=== PATIENT | male | born 1995 | race Caucasian/White ===

== ENCOUNTER 2017-11-23 00:01 | Emergency (ER) | payer OTHER ==
[~2017-11-23] VITALS: Ht 175.3 cm; Wt 80.7 kg
[2017-11-23 00:10] VITALS: TEMP 36.5; Ht 175.3 cm; Wt 80.7 kg
[2017-11-23] MEDS ORDERED: CYCLOBENZAPRINE HCL 5 MG TAB PO STA (01:26)
[2017-11-23] MEDS ORDERED: ACETAMINOPHEN 325 MG TAB PO STA (01:26)
[2017-11-23] MEDS ORDERED: LIDODERM (LIDOCAINE) PATCH 5% ONE (01:31)
--- NOTE | 2017-11-23 01:31 | EMERGENCY ROOM VISIT NOTE ---
History Report prepared by Chalo: David Hudson Under the Supervision of: Chepe DemarcoO. First contact with patient: 01:15 Chief Complaint: BACK PAIN Stated Complaint: LOWER BACK PAIN History of Present Illness The patient is a 22 year old male who presents to the Emergency Room with complaints of constant lower back pain beginning earlier today. The patient states that he was playing soccer today and was ran into by another player. He notes that he heard "two cracks" in his right lower back when the other player struck his back. He reports that he initially felt like his pain was muscular but was unsure because his pain worsened throughout the remainder of the soccer game. The patient states that he is currently experiencing a sharp pain that worsens whenever he moves. He notes that his pain also worsens and becomes tight when he takes a deep breath. He reports that his pain stays in his back and moves upward to his chest. He denies any abdominal pain, pelvic pain, and numbness. The patient states that he took an Aleve and used a cryogenic spray today with no relief of his pain. Source of History: patient Onset: today Position: back (lower) Quality: sharp, other (tight) Timing: constant Modifying Factors (Worsening): breathing, movement Associated Symptoms: + chest pain, No abdominal pain, No numbness Note: The patient denies any pelvic pain. Review of Systems See HPI for pertinent positives & negatives. A total of 6 systems reviewed and were otherwise negative. Past Medical & Surgical Medical Problems: (1) No chronic problems Family History No pertinent family history stated. Social History Smoking Status: Never Smoker Marital Status: single Housing Status: lives with roommate Occupation Status: student Current/Historical Medications Scheduled PRN Cyclobenzaprine Hcl (Flexeril), 10 MG PO TID PRN for Muscle Spasms Oxycodone Ir (Roxicodone Ir), 1 TAB PO Q6 PRN for Pain Allergies Coded Allergies: No Known Allergies (Unverified , 11/23/17) Physical Exam Vital Signs Date Time Temp Pulse Resp B/P (MAP) Pulse Ox O2 Delivery O2 Flow Rate FiO2 11/23/17 03:45 47 20 132/63 97 11/23/17 02:51 47 16 126/67 96 Room Air 11/23/17 00:10 36.5 49 18 143/75 98 Room Air Physical Exam GENERAL: alert, well appearing, well nourished, no distress, non-toxic LUNGS: Clear to auscultation. Normal chest wall mechanics HEART: no murmurs, S1 normal and S2 normal ABDOMEN: abdomen soft, non-tender, normo-active bowel sounds, no masses, no rebound or guarding. BACK: Back is symmetrical on inspection and there is no deformity, no midline tenderness or stepoff, no CVA tenderness. Tender at the junction of the T and L spine in the right perispinal region, no ecchymosis, no crepitus. SKIN: no rashes and no bruising UPPER EXTREMITIES: upper extremities are grossly normal. LOWER EXTREMITIES: No pitting edema. No bony tenderness to the pelvis and hips. NEURO EXAM: Normal sensorium, cranial nerves II-XII grossly intact, normal speech, no gross weakness of arms, no gross weakness of legs. Medical Decision & Procedures ER Provider Diagnostic Interpretation: Radiology results have been interpreted and reviewed by me. Lumbar Spine X-RAY: No subluxation. Questionable small anterior end plate fracture at t12. Medications Administered Medications (Trade) Dose Ordered Sig/Wyatt Route Start Time Stop Time Status Last Admin Dose Admin Cyclobenzaprine HCl (Flexeril Tab) 10 mg NOW STAT PO 11/23/17 01:26 11/23/17 01:28 DC 11/23/17 01:36 10 MG Acetaminophen (Tylenol Tab) 650 mg NOW STAT PO 11/23/17 01:26 11/23/17 01:28 DC 11/23/17 01:36 650 MG Lidocaine (Lidoderm Patch 5%) 1 patch STK-MED ONCE .ROUTE 11/23/17 01:31 11/23/17 01:32 DC 11/23/17 01:36 1 PATCH Tramadol HCl (Ultram Tab) 50 mg NOW STAT PO 11/23/17 03:08 11/23/17 03:09 DC 11/23/17 03:23 50 MG ED Course 0118: The patient was evaluated in room B9. A complete history and physical exam was performed. 0126: Acetaminophen 650mg PO, Cyclobenzaprine HCl 10mg PO 0243: Upon reevaluation, the patient is feeling better. I discussed the findings and the treatment plan with the patient. He verbalizes agreement and understanding. The patient was discharged home. 0308: Tramadol HCl 50mg PO Medical Decision Differential diagnosis: Etiologies such as musculoskeletal, disc herniation, fracture, aortic disease, metastatic disease, cord compression, discitis, infection, renal colic, gastrointestinal, acute exacerbation of chronic back pain, sciatica, cauda equina, as well as others were entertained. No hematuria noted on urine dip. Patient's pain mildly improved with medication. Patient with no prior history of back injury. I have a low suspicion for additional occult trauma including fracture or other spinal injury. Patient with no other paresthesias or other evidence of neurologic compromise. Patient able to ambulate here with a steady gait. Discussed with patient follow-up as a precaution, avoidance of strenuous activity including PT as he is in [facility], until his symptoms are improved and he is reevaluated by physician. Discussed use of his medications including a muscle relaxer and pain medication, avoidance of driving and alcohol use while taking these, discussed symptoms to watch and return for, he verbalized understanding was agreeable with plan. Medication Reconcilliation Current Medication List: was personally reviewed by me Blood Pressure Screening Patient's blood pressure: Normal blood pressure Blood pressure disposition: Did not require urgent referral Impression Primary Impression: Acute back pain Scribe Attestation The scribe's documentation has been prepared under my direction and personally reviewed by me in its entirety. I confirm that the note above accurately reflects all work, treatment, procedures, and medical decision making performed by me. Departure Information Dispostion Home / Self-Care Prescriptions Oxycodone Ir (Roxicodone Ir) 5 Mg Tab 1 TAB PO Q6 Y for Pain, #10 TAB Prov: Yelena Ag, DO 11/23/17 Cyclobenzaprine Hcl (FLEXERIL) 10 Mg Tab 10 MG PO TID Y for Muscle Spasms, #15 TAB Prov: Yelena Ag, DO 11/23/17 Referrals No Doctor, Assigned (PCP) Forms HOME CARE DOCUMENTATION FORM, IMPORTANT VISIT INFORMATION Patient Instructions My [facility] Additional Instructions Please avoid any strenuous activity/heavy lifting until your injury has healed and you are seen and cleared by a doctor. You may use tylenol/ibuprofen if you need to go to class or drive. You may use the muscle relaxer and stronger pain medicine as directed, but don't take them as drive or drink alcohol. If you have persistent or worsening pain, you may need specialty evaluation or additional imaging. If you have worsening pain, are unable to urinate, develop fevers/chills, numbness/tingling, abdominal pain, pain radiating into your leg, vomiting, or you have any other new or concerning symptoms, please return to the emergency room. Please let your [facility] commanders know you were given stronger pain medicine and muscle relaxers and that you should not participate in PT until you are rechecked by a doctor. Problem Qualifiers Primary Impression: Acute back pain Back pain location: low back pain Back pain laterality: right Sciatica presence: without sciatica Qualified Codes: M54.5 - Low back pain
[2017-11-23] MEDS ORDERED: TRAMADOL HCL 50 MG TAB PO STA (03:08)
[2017-11-23] MEDS ORDERED: OXYC1TAB3 PO (03:21)
[2017-11-23] MEDS ORDERED: CYCL10TA6 PO (03:21)
[2017-11-23 03:45] VITALS: BP 132/63; PULSE 47; O2SAT 97
--- NOTE | 2017-11-23 07:14 | DIAGNOSTIC IMAGING REPORT ---
L-SPINE MIN 4 VIEWS ROUTINE CLINICAL HISTORY: 22 years-old Male presenting with trauma, pain after playing soccer. TECHNIQUE: Frontal, bilateral oblique, lateral, and coned in lateral views of the lumbar spine were obtained. COMPARISON: None. FINDINGS: No scoliosis. Questionable pars defect on the left at L5. No compression deformity or subluxation. Vertebral bodies maintain normal height and alignment. Intervertebral disc spaces preserved. No significant degenerative change. No gross evidence of osseous neural foraminal narrowing. No transitional lumbosacral anatomy. Moderate stool burden throughout the colon. Mottled lucencies in the left upper quadrant likely in the stomach. IMPRESSION: 1. No radiographic evidence of acute osseous injury. 2. Possible pars defect on the left at L5. The report will be called/faxed according to standard departmental protocol. Electronically signed by: Jonatan Case M.D. 11/23/2017 7:13 AM Dictated Date/Time: 11/23/2017 7:10 AM
[2017-11-23] MEDS ORDERED: LIDODERM (LIDOCAINE) PATCH 5% TD SCH (09:00)
== END 2017-11-23 03:46 | disposition home or self-care (01) ==
LOC: C.EDB 00:02
DX: M54.5 Low back pain (principal)